=== PATIENT | male | born 1985 | race Caucasian/White ===

== ENCOUNTER 2022-11-12 11:39 | Outpatient (OUT) | payer BC, SELFPAY ==
[2022-11-12 12:08] LABS: Basophils Absolute Auto 0.1 10^3/uL (0.0-0.1); Basophils Percent Auto 0.8 % (0.2-2.0); Eosinophils Absolute Auto 0.1 10^3/uL (0.0-0.7); Eosinophils Percent Auto 1.8 % (0.9-7.0); Hematocrit 45.6 % (42.0-54.0); Hemoglobin 15.3 g/dL (14.0-18.0); Immature Granulocytes Abs Auto 0.08 10^3/uL (0.00-0.03); Immature Granulocytes Pct Auto 1.3 % (0.0-0.5); Lymphocytes Absolute Auto 1.5 10^3/uL (1.2-3.8); Lymphocytes Percent Auto 23.7 % (20.5-60.0); Mean Corpuscular HGB Conc 33.6 g/dL (29.9-35.2); Mean Corpuscular Hemoglobin 31.5 pg (25.9-34.0); Mean Corpuscular Volume 93.8 fL (80.0-94.0); Monocytes Absolute Auto 0.5 10^3/uL (0.3-0.8); Monocytes Percent Auto 8.1 % (1.7-12.0); Neutrophils Percent Auto 64.3 % (43.0-75.0); Platelet Count 237 10^3/uL (150-450); Red Blood Count 4.86 10^6/uL (4.70-6.10); Red Cell Distribution Width 11.9 % (11.0-15.0); White Blood Count 6.3 10^3/uL (4.0-11.0)
[2022-11-12 12:33] LABS: Estimated Average Glucose 100 mg/dL; Glycohemoglobin A1C 5.1 % (4.5-6.2)
[2022-11-12 12:35] LABS: Alanine Aminotransferase 42 U/L (16-63); Albumin Globulin Ratio 1.1; Albumin Level 4.2 g/dL (3.4-5.0); Alkaline Phosphatase 61 U/L (46-116); Anion Gap 11.6; Aspartate Amino Transferase 21 U/L (15-37); BUN Creatinine Ratio 11.7; Bilirubin Total 0.6 mg/dL (0.2-1.0); Calcium 9.3 mg/dL (8.5-10.1); Carbon Dioxide 28.2 mmol/L (21.0-32.0); Chloride 102 mmol/L (98-107); Chol HDL Ratio 4.5; Cholesterol 158 mg/dL (<=200); Estimated GFR (African America >60 (>=60); Estimated GFR (Non-African Ame >60 (>=60); Globulin 3.9 g/dL; Glucose 97 mg/dL (74-106); HDL Cholesterol 35 mg/dL (40-60); Potassium 4.8 mmol/L (3.5-5.1); Sodium 137 mmol/L (136-145); Total Protein 8.1 g/dL (6.4-8.2); Triglycerides 161 mg/dL (<=150); VLDL CHOLESTEROL 32.2 mg/dL
== END 2022-11-12 11:40 | disposition home or self-care (01) ==
PROVIDERS: PCP Family Medicine; Visit Provider Family Medicine
DX: Z00.00 Encounter for general adult medical examination without abnormal findings (principal)
CPT/HCPCS: 36415; 80053; 80061; 83036; 85025

== ENCOUNTER 2024-09-22 10:03 | Outpatient (OUT) | payer BC, SELFPAY ==
--- OUTSIDE RECORDS SUMMARY | 2023-10-31 10:00 | XMS_ITS ---
Author Organization [facility] in [place] Address [address] [place] [address] Care Team Providers Care Journalism Internship Name Role Phone Edwardo House Primary Care Provider Allergies No Known Allergies REASON FOR VISIT Annual wellness Social History Tobacco Use: Social History Observation Description Date Details (start date - stop date) Current Smoker 03/10/2005 - NA Tobacco Use/Smoking Question Answer Notes Patient is a current smoker When did you start smoking? 03/10/2005 How often do you smoke cigarettes? some days, bu t not every day Vital Signs Weight 252.3 lbs 10/31/2023 Height 70 in 10/31/2023 Blood pressure systolic 128 mm Hg 10/31/19 24 Blood pressure diastolic 72 mm Hg 024 BMI 36.2 kg/m2 10/31/2023 Encounters Encounter Location Date Provider Diagnosis [facility] [address] [place] [address] 10/31/2023 Edwardo House Well adult Z00.0 0 Assessments Encounter Date Diagnosis (ICD Code) Assessment Notes Treatment Notes Treatment Clinical Notes Section Notes 10/31/2023 Well adult (ICD-10 - Z00.00) Plan Of Treatment Pending Test Test Name Order Date CMP (COMPLETE METABOLIC PANEL) HEMOGLOBIN A1C (GLYCO) 10/31/2023 INSULIN, TOTAL 10/31/2023 LIPID PANEL (CHOL/TRIG/HDL/LDL) 10/31/19 24 CBC WITH DIFF 10/31/2023 Progress Notes * Satnam MILLIGAN JDOB:1985 (37 yo M)Acc No.[id number]:10/31/2023 Progress Note Patient: Satnam CASTELLANO Provider: Terry House ([facility])MD :1985 A ge:37 Y S ex:Male Date:10/31/2023 Address:[address] [place], [place] [id number] Pcp:JERAMY HOUSE Check In:01:47 PM ESTCheck O ut:02:15 PM EST Subjective: * Chief Complaints: * 1 . Annual wellness. * HPI: D epression Screening: PHQ-2 (2015 Edition) L ittle interest or pleasure in doing things?�Not at all F eeling down, depressed, or hopeless? N ot at all T otal Score 0 * ROS: E ENT: hearing changes d enies. v isual changes d enies.�non-healing mouth sores d enies. s wollen glands or neck lumps d enies. h oarseness d enies. s ore throat d enies. d ifficulty swallowing d enies. n ose bleeds d enies. n mario congestion d enies. e ar ache d enies. e ar discharge�denies. r inging in ears d enies. l ight sensitivity d enies. e ye pain d enies. b lurring d enies. e ye irritation d enies. d ouble vision d enies.�vision loss d enies. G eneral/Constitutional: Sweats: D enies. F atigue d enies. S leep problems d enies. A norexia d enies. M alaise d enies. W eight loss d enies.�Fatigue or Weakness d enies. F ever or Chills d enies. C ardiovascular: Shortness of Breath w/lying flat d enies. L ightheadedness/dizziness d enies. C hest tightness/ heavy pressure d enies. S welling of legs, ankles, or feet d enies. W aking up with shortness of breath d enies. C hest pain denies. P alpitations d enies. W eight gain d enies. R espiratory: Chronic or frequent cough d enies. C oughing up blood�denies. D ifficulty breathing d enies. P roductive cough d enies. S noring�denies. S hortness of breath that awakens from sleep (PND) d enies. C hest pain d enies. S putum production d enies. W heezing d enies. M usculoskeletal: Joint pain d enies. J oint Fluid d enies. B ack pain d enies. K nee pain d enies. N jossie pain d enies. J oint Stiffness d enies. M uscle cramps d enies. W eakness of muscles d enies. A rthritis d enies. M uscle aches d enies. P ain in shoulder(s) d enies. S wollen joints d enies. * Active Problem List Z00.00 Well adult Modified On:11/12/2022/U Status:confirmed R06.83 Snoring Modified On:11/12/2022/U Status:confirmed M23.90 Knee internal derang ement, unspecified laterality Modified On:11/12/2022U Status:confirmed * Medical History: H ypertriglyceridemia, Herpes zoster. * Surgical History: E GD 12/01/2015. * Hospitalization/Major Diagno stic Procedure: D enies Past Hospitalization. * Family History: F ather: alive. M other: alive, diagnosed with Diabetes mellitus without mention of complication, type II or unspecified type, not stated as uncontrolled. * Social History: T obacco Use: T obacco Use/Smoking P atient is a c urrent smoker W hen did you start smoking? 0 03/10/2005 H ow often do you smoke cigarettes? s ome days, but not every day * Medications: D iscontinued Amoxicillin-Pot Clavulanate 875-125 MG Tablet 1 tablet Orally every 12 hrs , Medication List reviewed and reconciled with the patient * Allergies: N .K.D.A. Objective: * Vitals: W t:252.3lbs, Ht: 70 in, BP:128/72mm Hg, BMI:36.2Index, Ht-cm: 177.8 cm, Wt-k.44 kg. * Examination: P hysical Exam: GENERAL: w ell developed, well nourished, in no acute distress. HEAD: n ormocephalic/atraumatic. EYES: p upils equal, round and reactive to light, conjunctivae and sclerae normal. EARS: n o deformity or lesion of external ear, canals and TM appear normal bilaterally, TM's intact, not inflamed with normal light reflex, hearing grossly normal to conversational speech. NOSE: n o deformity, discharge, inflammation, or lesions.� MOUTH: m ucous membranes moist, normal oropharynx and posterior pharynx without lesions or exudates, tongue normal, dentition normal. NECK: n jossie supple, no masses or palpable cervical nodes, trachea midline, thyroid without nodules, masses, tenderness, or enlargement. CHEST: n o chest wall deformity, no chest wall tenderness.� LUNGS: n ormal respiratory effort and clear to auscultation, no wheezes, rales, or rhonchi, good air exchange. CARDIO: r egular rate and rhythm, normal S1 and S2, nor murmur, rub, or gallop. PULSES: n ormal capillary refill. ABDOMEN: s oft, non-distended, non-tender, no masses. MUSCULOSKELETAL: n o deformity or scoliosis noted, normal range of motion, joints normal, no erythema, edema, effusion, or ecchymosis. EXTREMITY: n o clubbing, cyanosis, edema, or deformity with normal ROM in both upper and lower bilateral extremities. NEUROLOGIC: g rossly normal. SKIN: n o rashes, ulcerations, or suspicious lesions. LYMPH NODES: n o cervical adenopathy, nodes normal. MENTAL STATUS: a lert and oriented x3, normal mood and affect. Assessment: * Assessment: 1. W ell adult - Z00.00 (Primary) Plan: * Treatment: * Preventive Medicine: Screenings/Counseling: B ID ACTION PLAN Above Normal BMI Follow-up D ietary management education, guidance, and counseling T OBACCO ACTION PLAN Patient counselled on the dangers of tobacco use and urged to quit. 0 10/31/2023 . * * Sign off status: Completed Visit Status: C HK (Check Out) true * Provider: Terry House ([facility])MD Date: 0 10/31/2023 Generated for [place] bhatti/Yann/Harveyitting on: 0 09/22/2024 10:07 AM EDT History and Physical Notes * HPI (History of Present Illness) Category Sub-Category Detail Notes Category Not es Depression Screening PHQ-2 (2015 Edition) Little interest or pleasure in doing things?: Not at all Feeling down, depressed, or hopeless?: N ot at all Total Score: 0 Examination Category Sub-Category Detail Notes Category Not es Physical Exam GENERAL: well developed, well nourished, in no acute distress HEAD: normocephalic/atraum atic EYES: pupils equal, round and reactive to light, conjunctivae and sclerae normal EARS: no deformity or lesi on of external ear, canals and TM appear normal bilaterally, TM's intact, not inflamed with normal light reflex, hearing grossly normal to conversational speech NOSE: no deformity, discha rge, inflammation, or lesions MOUTH: mucous membranes symone st, normal oropharynx and posterior pharynx without lesions or exudates, tongue normal, dentition normal NECK: neck supple, no mass es or palpable cervical nodes, trachea midline, thyroid without nodules, masses, tenderness, or enlargement CHEST: no chest wall deform ity, no chest wall tenderness LUNGS: normal respiratory e ffort and clear to auscultation, no wheezes, rales, or rhonchi, good air exchange CARDIO: regular rate and rhy thm, normal S1 and S2, nor murmur, rub, or gallop PULSES: normal capillary ref ill ABDOMEN: soft, non-distended, non-tender, no masses RECTAL: MUSCULOSKELETAL: no deformity or scol iosis noted, normal range of motion, joints normal, no erythema, edema, effusion, or ecchymosis EXTREMITY: no clubbing, cyanosi s, edema, or deformity with normal ROM in both upper and lower bilateral extremities NEUROLOGIC: grossly normal SKIN: no rashes, ulceratio ns, or suspicious lesions LYMPH NODES: no cervical adenopat hy, nodes normal MENTAL STATUS: alert and oriented x 3, normal mood and affect
--- OUTSIDE RECORDS SUMMARY | 2024-09-22 05:00 | XMS_ITS ---
Author Organization [facility] in [place] Address [address] [place] [address] Care Team Providers Care Nurses Supervisor Name Role Phone Edwardo Espinal Primary Care Provider Allergies No Known Allergies REASON FOR VISIT wellness- due for yearly labs, Two days ago after swimming had water in ear, tried to clean it out and now cant hear out of it- right ear Social History Tobacco Use: Social History Observation Description Date Details (start date - stop date) Former Smoker NA - NA Tobacco Control (Standard) Question Answer Notes Tobacco use: Former smoker Vital Signs Weight 250.2 lbs 09/22/2024 Height 70 in 09/22/2024 Blood pressure systolic 122 mm Hg 09/23/19 25 Blood pressure diastolic 80 mm Hg 025 BMI 35.9 kg/m2 09/22/2024 Procedures Procedure Date Ordered Date Performed Result Body Sit e Cerumen Removal - performed 09/22/2024 09/22/2024 N/A Encounters Encounter Location Date Provider Diagnosis [facility] [address] [place] [address] 09/22/2024 Edwardo Espinal Well adult Z00.00 an d Cerumen impaction H61.20 Assessments Encounter Date Diagnosis (ICD Code) Assessment Notes Treatment Notes Treatment Clinical Notes Section Notes 09/22/2024 Well adult (ICD-10 - Z00.00) 09/22/2024 Cerumen impaction (ICD-10 - H61.20) Plan Of Treatment Pending Test Test Name Order Date HEMOGLOBIN A1C (GLYCO) 09/22/2024 INSULIN, TOTAL 09/22/2024 LIPID PANEL (CHOL/TRIG/HDL/LDL) 09/23/19 25 PSA, SCREENING 09/22/2024 CMP (COMP MET BRANDON) w/eGFR CKD-EPI 2024 CBC WITH DIFF 09/22/2024 Progress Notes * Satnam MILLIGAN JDOB:1985 (38 yo M)Acc No.[id number]:09/22/2024 UNLOCKED PROGRESS NOTE Progress Note Patient: Satnam CASTELLANO Provider: Terry Espinal ([facility])MD :1985 A ge:38 Y S ex:Male Date:09/22/2024 Address:[address] [place] [address] Eileen Terry [place], [id number] Check In:08:51 AM ESTCheck O ut:09:51 AM EST Subjective: * Chief Complaints: * 1 . Wellness- due for yearly labs. 2. Two days ago after swimming had water in ear, tried to clean it out and now cant hear out of it- right ear. * HPI: G eneral: R ear pain -. * Medical History: H ypertriglyceridemia, Herpes zoster. * Surgical History: E GD 12/01/2015. * Hospitalization/Major Diagno stic Procedure: D enies Past Hospitalization. * Family History: F ather: alive. M other: alive, diagnosed with Diabetes mellitus without mention of complication, type II or unspecified type, not stated as uncontrolled. * Social History: T obacco Use: T obacco Control (Standard) T obacco use: F ormer smoker * Medications: N one * Allergies: N .K.D.A. Objective: * Vitals: W t:250.2lbs, Ht: 70 in, BP:122/80mm Hg, BMI:35.9Index, Ht-cm: 177.8 cm, Wt-k.49 kg. Assessment: * Assessment: 1. W ell adult - Z00.00 (Primary) 2 . C erumen impaction - H61.20 � Plan: * Treatment: 2. C erumen impaction P rocedure: Cerumen Removal - performed (Performed Date - 09/22/2024) * Procedure Codes: 6 9210 REMOVE IMPACTED CERUMEN * Preventive Medicine: Screenings/Counseling: B [place] ACTION PLAN Above Normal BMI Follow-up D ietary management education, guidance, and counseling * * Electronic signature of Edwardo Espinal MD, [id number] on 09/22/2024 at 10:06 AM EDT Sign off status: Pending Visit Status: C HK (Check Out) * Provider: Terry Espinal ([facility])MD Date: 0 09/22/2024 Generated for Anastacioi davy/Yann/eTransmitting on: 0 09/22/2024 10:06 AM EDT History and Physical Notes * HPI (History of Present Illness) Category Sub-Category Detail Notes Category Not es General R ear pain -
--- OUTSIDE RECORDS SUMMARY | 2024-09-22 10:07 | XMS_ITS | Patient Health Record ---
Author Organization [facility] in [place] Address [address] [place] [address] Care Team Providers Care Motorcycle Assembler Name Role Phone Edwardo Espinal Primary Care Provider Allergies No Known Allergies Reason For Referral No Information Social History Tobacco Use: Social History Observation Description Date Details (start date - stop date) Former Smoker NA - NA Alcohol Screen (Audit-C) Question Answer Notes Did you have a drink contain ing alcohol in the past year? Yes How often did you have 6 or more drinks on one occasion in the past year? Four or more times a week (4 points) How many drinks did you have on a typical day when you were drinking in the past year? 7 to 9 drinks (3 points) How often did you have a dri nk containing alcohol in the past year? Daily or almost daily (4 points) Points 11 Interpretation Positive Tobacco Control (Standard) Question Answer Notes Tobacco use: Former smoker Problems Problem Type SNOMED Code ICD Code Onset Dates Problem Status W/U Status Risk Notes Problem Snoring (47417598) Snoring (R06.83) Active confirmed Problem Well adult (562719145) Well adult (Z00.00) Active confirmed Problem Knee internal derangement, unspecified laterality (M23.90) Active confirmed Vital Signs Blood pressure diastolic 80 mm Hg 09/22/2024 Height 70 in 09/22/2024 Blood pressure systolic 122 mm Hg 09/22/2024 Weight 250.2 lbs 09/22/2024 BMI 35.9 kg/m2 09/22/2024 Procedures Procedure Date Ordered Date Performed Result Body Sit e Cerumen Removal - performed 09/22/2024 09/22/2024 N/A Encounters Encounter Location Date Provider Diagnosis [facility] [address] [place] [address] 10/31/2023 Edwardo Espinal Well adult Z00.00 [facility] [address] [place] [address] 09/22/2024 Edwardo Espinal Well adult Z00.00 an d Cerumen impaction H61.20 Assessments Encounter Date Diagnosis (ICD Code) Assessment Notes Treatment Notes Treatment Clinical Notes Section Notes 10/31/2023 Well adult (ICD-10 - Z00.00) 09/22/2024 Well adult (ICD-10 - Z00.00) 09/22/2024 Cerumen impaction (ICD-10 - H61.20) Plan Of Treatment Pending Test Test Name Order Date CMP (COMPLETE METABOLIC PANEL) 3 CMP (COMPLETE METABOLIC PANEL) 4 HEMOGLOBIN A1C (GLYCO) 11/12/2022 HEMOGLOBIN A1C (GLYCO) 09/22/2024 HEMOGLOBIN A1C (GLYCO) 10/31/2023 INSULIN, TOTAL 09/22/2024 INSULIN, TOTAL 10/31/2023 LIPID PANEL (CHOL/TRIG/HDL/LDL) 09/23/19 25 LIPID PANEL (CHOL/TRIG/HDL/LDL) 10/31/19 24 LIPID PANEL (CHOL/TRIG/HDL/LDL) 11/13/19 23 CBC WITH DIFF 11/12/2022 CBC WITH DIFF 10/31/2023 Sleep study - Diagnostic Polysonogram PSA, SCREENING 09/22/2024 CMP (COMP MET BRANDON) w/eGFR CKD-EPI 2024 CBC WITH DIFF 09/22/2024 Insurance Providers Payer Name Payer Address Payer Phone Subscriber Number Group Number Insured Name Patient Relationship to Insured Coverage Start Date Coverage End Date [employer]ESS PPO PLUS LOCAL PLAN [address] [place] [address] [id number] Satnam Milligan Self - patient is the insured Medical (General) History Medical History History ICD Code Hypertriglyceridemia E78.1 Herpes zoster B02.9 Surgical History Surgery Date(Month/Year) EGD 12/01/2015
[2024-09-22 10:49] LABS: Hematocrit 41.5 % (42.0-54.0); Hemoglobin 14.0 g/dL (14.0-18.0); Immature Granulocytes Abs Auto 0.01 10^3/uL (0.00-0.03); Immature Granulocytes Pct Auto 0.2 % (0.0-0.5); Lymphocytes Absolute Auto 1.3 10^3/uL (1.2-3.8); Mean Corpuscular HGB Conc 33.7 g/dL (29.9-35.2); Mean Corpuscular Hemoglobin 31.3 pg (25.9-34.0); Mean Corpuscular Volume 92.8 fL (80.0-94.0); Platelet Count 233 10^3/uL (150-450); Red Blood Count 4.47 10^6/uL (4.70-6.10); White Blood Count 4.8 10^3/uL (4.0-11.0)
[2024-09-22 11:08] LABS: Alanine Aminotransferase 38 U/L (16-63); Albumin Globulin Ratio 1.2; Albumin Level 3.9 g/dL (3.4-5.0); Alkaline Phosphatase 64 U/L (46-116); Anion Gap 13.1; Aspartate Amino Transferase 20 U/L (15-37); Blood Urea Nitrogen 12.0 mg/dL (7.0-18.0); Calcium 8.9 mg/dL (8.5-10.1); Carbon Dioxide 28.0 mmol/L (21.0-32.0); Chloride 106 mmol/L (98-107); Cholesterol 143 mg/dL (<=200); Estimated GFR (African America >60 (>=60 mL/min/1.73m^2); Estimated GFR (Non-African Ame >60 (>=60 mL/min/1.73m^2); Globulin 3.3 g/dL; Glucose 98 mg/dL (74-106); HDL Cholesterol 37 mg/dL (40-60); Potassium 4.1 mmol/L (3.5-5.1); Sodium 143 mmol/L (136-145); Total Protein 7.2 g/dL (6.4-8.2); Triglycerides 120 mg/dL (<=150); VLDL CHOLESTEROL 24.0 mg/dL
== END 2024-09-22 10:04 | disposition home or self-care (01) ==
PROVIDERS: PCP Family Medicine; Visit Provider Family Medicine
DX: Z00.00 Encounter for general adult medical examination without abnormal findings (principal)
CPT/HCPCS: 36415; 80053; 80061; 83036; 83525; 85025; G0103